=== PATIENT | male | born 1990 | race Hispanic/Latino ===

== ENCOUNTER 2018-04-04 20:17 | Inpatient (IN) ==
[2018-04-04] MEDS ORDERED: NS 1,000 ML IV ONE (23:56)
[2018-04-05] MEDS ORDERED: MORPHINE IV ONE (00:01)
[2018-04-05] MEDS ORDERED: ZOFRAN IV ONE (00:01)
[2018-04-05 00:39] LABS: ESTIMATED GFR > 60
[2018-04-05 00:44] LABS: BASO# 0.04 X1000 (0.0-0.2); BASO% 0.7 % (0.0-0.8); HEMATOCRIT 45.3 % (42.0-52.0); HEMOGLOBIN 15.9 g/dL (14.0-18.0); IMM GRAN# 0.07 X1000 (0.0-0.04); IMM GRAN% 1.2 % (0.0-0.5); LYMPH# 0.94 X1000 (1.2-3.4); LYMPH% 16.1 % (20.5-51.1); MCH 30.9 PG (27-31); MCHC 35.1 g/dL (33-37); MCV 88.1 FL (81-99); MONO# 0.83 X1000 (0.11-0.59); MONO% 14.2 % (1.7-9.3); MPV 11.6 FL (7.4-10.4); NEUT# 3.96 X1000 (1.4-6.5); NEUT% 67.8 % (42.2-75.2); PLT 97 X1000 (130-400); RBC 5.14 XMIL (4.7-6.1); RDW 12.5 % (11.5-14.5); WBC 5.84 X1000 (4.8-10.8)
[2018-04-05 00:48] LABS: AMYLASE 47 U/L (20-200); BUN 12 mg/dL (8-22); CALCIUM 8.4 mg/dL (8.8-10.2); GLUCOSE 110 mg/dL (70-104); LIPASE 20 U/L (13-60); TCO2 25 mmol/L (25-35)
[2018-04-05 01:15] LABS: AGAP 14; CHLORIDE 101 mmol/L (98-107); POTASSIUM 3.9 mmol/L (3.5-5.1)
[2018-04-05 01:16] LABS: COSMO 280; CREATININE 0.7 mg/dL (0.7-1.2)
[2018-04-05 01:17] LABS: ALBUMIN 3.9 g/dL (3.5-5.0)
[2018-04-05 01:18] LABS: ALKALINE PHOSPHATASE 105 U/L (32-122); GOT 102 U/L (10-34); GPT 110 U/L (10-44)
[2018-04-05 01:21] LABS: SODIUM 140 mmol/L (136-145)
[2018-04-05 02:57] LABS: BILIRUBIN URINE NEGATIVE (NEGATIVE); BLOOD URINE 1+ (NEGATIVE); CLARITY CLEAR (CLEAR); COLOR DARK YELLOW; GLUCOSE URINE NEGATIVE (NEGATIVE); KETONE URINE NEGATIVE (NEGATIVE); LEUKOCYTES URINE TRACE (NEGATIVE); NITRITE URINE NEGATIVE (NEGATIVE); PROTEIN URINE TRACE mg/dL (NEGATIVE); UROBILINOGEN URINE NORMAL
[2018-04-05] MEDS ORDERED: NS 1,000 ML IV SCH (03:00)
--- NOTE | 2018-04-05 03:02 | PROVIDER DOCUMENTATION ---
This chart was entered by Laura Young Scribe, acting as scribe for Coy Garcia MD. HPI-General Adult - General Chief Complaint: General Adult Stated Complaint: ABD PAIN Time Seen by Provider: 04/04/18 22:00 Source: patient, certified court/medical interpreter Allergies/Adverse Reactions: Patient Allergies Allergy/AdvReac Type Severity Reaction Status Date / Time No Known Allergies Allergy Verified 04/04/18 22:50 Home Medications: Home Medication List Medication Instructions Recorded Confirmed Last Taken Type NK [No Home Medications] 04/04/18 04/04/18 Unknown History - History of Present Illness -Gen Adult Nature of Presenting Problems: Pt is 27/m presenting to the ED w/ ABD pain and a case of varicella. he sts that the symptoms began around 3pm yesterday and have worsened . Location of Pain/Injury: reports: abdomen Pain Radiation: reports: no radiation Quality of Pain: reports: aching Severity: reports: severe Onset/Duration: reports: abrupt, other (yesterday, 3pm) Timing: reports: getting worse Context/Activities at Onset: reports: none Modifying Factors: improves with: nothing Associated Symptoms: reports: denies symptoms, diarrhea. denies: constipation Similar Symptoms Previously?: No Recently seen or treated by another doctor?: No Review of Systems - Adult - REVIEW OF SYSTEMS - ADULT Constitutional: denies: chills, fever Eyes: reports: no symptoms reported Ears, Nose, Mouth & Throat: reports: no symptoms reported Cardiovascular: reports: no symptoms reported. denies: chest pain, edema Respiratory: reports: no symptoms reported. denies: cough, shortness of breath , wheezing Gastrointestinal: reports: abdominal pain, diarrhea. denies: see HPI, vomiting Genitourinary: reports: no symptoms reported Musculoskeletal: reports: no symptoms reported Integumentary: reports: no symptoms reported Neurological: reports: no symptoms reported. denies: dizziness/vertigo, headache/migraines Psychiatric: reports: no symptoms reported Endocrine: reports: no symptoms reported Hematologic/Lymphatic: reports: no symptoms reported Allergic/Immunologic: reports: no symptoms reported All Other Systems: Reviewed and Negative Past History - Adult - PAST MEDICAL HISTORY-ADULT Review of Records: reports: Old Records Reviewed, Nursing Assessment Review, Medications Reviewed, Social history reviewed & non-contributory. - SOCIAL HISTORY Smoking: denies, non-smoker Substance Use: none/never Alcohol Use Frequency: never Living Situation: family Physical Exam-General - PHYSICAL EXAM-ADULT Initial Vital Signs Reviewed: Yes - CONSTITUTIONAL General Appearance: appears well, alert, no apparent distress - EYES Eyes: PERRL/EOMI - HEAD, EARS, NOSE, MOUTH & THROAT HENMT: normocephalic/atraumatic, moist mucous membranes, normal ENT inspection, TMs normal, pharynx normal - NECK Neck: non-tender, full range of motion, supple, normal inspection - RESPIRATORY Respiratory: chest non-tender, lungs clear, normal breath sounds, no pleuratic chest pain, no respiratory distress, no accessory muscle use - CARDIOVASCULAR Cardiovascular: normal peripheral pulses, regular rate, rhythm, no edema, no gallop, no JVD, no murmur - GASTROINTESTINAL (ABDOMEN) Abdominal Exam: normal bowel sounds, rigid - LYMPHATIC Lymphatic: no adenopathy - MUSCULOSKELETAL Back Exam: normal inspection, no CVA tenderness, no vertebral tenderness Extremity: normal range of motion, non-tender, normal gait, normal inspection, no pedal edema, no calf tenderness, normal capillary refill, pelvis stable - SKIN Integumentary: other (vericella rash) - NEUROLOGIC Neurologic: latrine cleaner II-XII nml as tested, grossly normal, no motor/sensory deficits - PSYCHIATRIC Psych/Mental Status: normal mood/affect, normal thought content, normal thought process, oriented x 3 Progress - PLAN OF CARE/RESULTS Progress/Plan/Lab Results: Vital Signs - 8 hr 04/04/18 20:24 04/04/18 22:47 Temperature 98.4 F 98.5 F Pulse Rate 90 84 Respiratory Rate 18 20 Blood Pressure 135/99 123/91 O2 Sat by Pulse Oximetry 98 98 Orders Category Date Time Status Saline Loc DIRECTED Care 04/04/18 23:54 Active NPO Diet 04/04/18 23:[address] ABD/PELVIS W/IV CONT ONLY [CT] Stat Exams 04/04/18 23:56 Ordered AMYLASE [CHEM] Stat Lab 04/04/18 23:54 Ordered CBC WITH ELECTRONIC DIFF [HEME] Stat Lab 04/04/18 23:54 Ordered COMPREHENSIVE METABOLIC PANEL [CHEM] Stat Lab 04/04/18 23:54 Ordered LIPASE [CHEM] Stat Lab 04/04/18 23:[address] W/POSS RFLX CULT [URINALYSIS] Stat Lab 04/04/18 23:54 Uncollected 0.9% Sodium Chloride Inj [Ns] 1,000 ml Med 04/04/18 23:56 Active IV 999 mls/hr Morphine Med 04/05/18 00:01 Discontinued 6 mg IV NOW ONE Ondansetron [Zofran] Med 04/05/18 00:01 Discontinued 4 mg IV NOW ONE Result Diagrams: 04/04/18 00:15 04/04/18 00:15 - REASSESSMENT Reassessment #1 Time Reassessed: 02:57 Status: unchanged (We do not have definitive diagnosis but with low wbc and low platelets, i suuspect abdominal problems are related to Varicella -will ask ID to see and get GB u/s) - CONSULTS/PCP/HOSPITALIST Notification #1 *Consult/PCP/Hospitalist*: Dr Pereira Departure - Departure Date of Disposition Decision: 04/05/18 Time of Disposition Decision: 03:00 DIAGNOSIS: Varicella infection Qualifiers: Varicella complications: unspecified complication Qualified Code(s): B01.89 - Other varicella complications Disposition: ADMITTED INPATIENT 09 Certified Medical Emergency: Emergent Condition: Serious Referrals and Follow-Ups: None,PCP [Primary Care Provider] - - Critical Care Note This patient required my direct & personal management of CC.: Yes Total Time (mins): 35 Critical Care Statement: This patient required my direct personal management to treat or rule out processes, the absence of which, could potentiallly result in sudden, clinically significant life or limb threatening deterioration. Attestation - Physician/ RONALD Attestation Patient care was provided by Advanced Practice Provider:: No The physician spent face to face time with patient:: Yes Advanced Practice Provider documentation review:: Supervising physician onsite and consulted in the evaluation and care of this patient. The physician did have a face to face encounter with the patient. This chart was documented by the indicated scribe, (Laura Young, Jairo) and accurately reflects the services I performed and decisions made by me, Coy Garcia MD, as attested by the provider's signature.
[2018-04-05 03:23] LABS: URINE BACTERIA 1+ /HFP; URINE EPITHELIAL CELLS <10 /HPF (<10); URINE RBC <10 /HPF (<10); URINE SOURCE CLEAN CATCH; URINE WBC <10 /HPF (<10)
[2018-04-05] MEDS: MORPHINE IV PRN ×2 (07:08→09:32)
--- NOTE | 2018-04-05 07:29 | Diag Imaging Result Doc PS360 ---
EXAM: CT ABD/PELVIS W/IV CONT ONLY INDICATION: Abd pain TECHNIQUE: This exam was performed using automated exposure control, adjustment of mA or kV according to patient size, and/or use of iterative reconstruction technique. COMPARISON: None. FINDINGS: The spleen is borderline to mildly prominent measuring up to 14 cm in axial length. The liver, gallbladder, pancreas, adrenal glands, kidneys, urinary bladder, and appendix are unremarkable. There is a very small hiatal hernia. The remainder of the GI tract is essentially unremarkable. IMPRESSION: Incidental/nonacute findings detailed above. No evidence of acute pathology by CT. Electronically signed by Scooby Chance 04/05/2018 7:26 AM
--- NOTE | 2018-04-05 07:46 | Diag Imaging Result Doc PS360 ---
EXAM: US GB < RUQ (LIMITED) INDICATION: acute abd COMPARISON: None. FINDINGS: The gallbladder appears normal with no stones, wall thickening, or pericholecystic fluid. The common bile duct is normal in diameter. Sonographic Easley's sign was reported to be negative. The liver is grossly unremarkable. Portal venous flow is hepatopetal. The pancreas is obscured by bowel gas. The mid and distal aorta are obscured by bowel gas as well. The remainder of the aorta and IVC are unremarkable. The right kidney is grossly unremarkable. IMPRESSION: Essentially unremarkable right upper quadrant abdominal ultrasound. Electronically signed by Scooby Chance 04/05/2018 7:44 AM
[2018-04-05] MEDS ORDERED: ZOVIRAX PO SCH (14:00)
[2018-04-05 16:18] VITALS: BP 124/71
--- NOTE | 2018-04-06 03:10 | HISTORY AND PHYSICAL ---
CHIEF COMPLAINT: Abdominal pain. HISTORY OF PRESENT ILLNESS: Patient is a 27-year-old male who presented to the ER with abdominal pain, nausea and a rash. States the abdominal pain began a couple hours ago and has continued to worsen. Denies any nausea, vomiting. Denies dysuria, urinary frequency, urgency. Denies hesitancy. ALLERGIES: No known drug allergies. MEDICATIONS: None. REVIEW OF SYSTEMS: As noted above. Denies any diarrhea, constipation, melena, hematochezia. Denies weight loss or weight gain. Notes that the rash has been present for several days. His abdominal pain began yesterday and has abruptly worsened over the past few hours. Denies headaches, blurred vision, change in vision. Denies any focalized numbness, tingling, weakness in his extremities. PAST MEDICAL HISTORY: No chronic active problems. SOCIAL HISTORY: Patient does not smoke or drink. Does not drink alcohol. FAMILY HISTORY: Noncontributory. PHYSICAL EXAMINATION: VITAL SIGNS: Reviewed and stable. Temperature 98.4 degrees, pulse 90, respiratory 18, BP 135/99, saturating 98% on room air. GENERAL: Patient is awake, alert, very pleasant to talk with. He is currently in no respiratory distress. HEENT: Normocephalic, atraumatic. NECK: Supple. CARDIOVASCULAR: Regular rate. No murmurs. CHEST: Clear and nonlabored. ABDOMEN: Soft, nondistended. EXTREMITIES: Moves all extremities. ASSESSMENT: 1. Chickenpox. 2. Abdominal pain. PLAN: We will continue patient in the hospital. We will check ultrasound and CT and we will follow. cc: Itz Anthony MD
--- NOTE | 2018-04-06 06:00 | DISCHARGE SUMMARY ---
ADMISSION DATE: 04/04/2018 DISCHARGE DATE: 04/05/2018 CHIEF COMPLAINT: Abdominal pain and rash. HISTORY OF PRESENT ILLNESS: This is a 27-year-old gentleman with a negative history, who presents to the emergency room complaining of abdominal pain and a blistery rash. INCOMPLETE REPORT--DICTATION STOPS HERE. Dictated by PEPE Nicolas for Itz Anthony MD This chart was documented by, PEPE Nicolas and accurately reflects the services performed, treatment plan and medical decisions as attested by the providers signature Itz Anthony MD. cc: PEPE Nicolas MD
--- NOTE | 2018-04-08 03:47 | DISCHARGE SUMMARY ---
ADMISSION DATE: 04/05/2018 DISCHARGE DATE: 04/05/2018 DISCHARGE DIAGNOSIS: 1. Varicella zoster. 2. Abdominal pain, improved. CONSULTATIONS: None. PROCEDURES: None. BRIEF HOSPITAL COURSE: The patient was admitted to the hospital and treated in the usual fashion and placed on acyclovir for his chickenpox. Thankfully, he had an uneventful hospital course. On discharge, he is awake and alert. He is tolerating a full diet and will be discharged to home. cc: Itz Anthony MD
== END 2018-04-05 16:59 | disposition home or self-care (01) | DRG 866 ==
LOC: P.ED 20:17 → P.MEDSURG 04-05 05:03
PROVIDERS: ATTEND Family Medicine
CPT/HCPCS: 74177; 76705; 80053; 81001; 82150; 83690; 85025; 87040; 87088; 96361; 96374; 96375; 99285; A9270; J2270; J2405; J7030; Q9967